=== PATIENT | female | born 1980 | race Caucasian/White ===

== ENCOUNTER 2019-11-06 11:54 | Emergency (ER) | payer OTHER ==
[2019-11-06 12:00] VITALS: TEMP 98.4; BMI 20.7
[2019-11-06] MEDS ORDERED: SODIUM CHLORIDE 1,000 ML IV STA (12:11)
[2019-11-06] MEDS ORDERED: ONDANSETRON 4 MG/2 ML VIAL IVPUSH ONE (12:11)
[2019-11-06] MEDS ORDERED: ONDANSETRON 4 MG/2 ML VIAL ONE (12:41)
--- NOTE | 2019-11-06 12:41 | PDOC ---
History of Present Illness - General Chief Complaint: Pain, Acute Stated Complaint: SENT BY PCP/ ABD.PAIN Time Seen by Provider: 11/06/19 12:10 History Source: Patient Exam Limitations: No Limitations - History of Present Illness Travel History: No Initial Comments: 11/06/19 12:29 39 y/o female with rlq sharp cramping x 3 days associated with nausea since onset. Pt has no bowel or urinary complaints. Pt states has been on control x 10 years and has had no menstrual cycle since starting it. Pt denies GI hx or hx. Pt denies fever or chills, recent travel, or recent illness. Timing/Duration: reports: constant Quality: reports: moderate, cramping, sharpness Abdominal Pain Onset Location: reports: RLQ Pain Radiation: reports: periumbilical Activities at Onset: reports: none Aggravating Factors: improves with: None Alleviating Factors: improves with: None Past History - Travel History Traveled outside of the country in the last 30 days: No Close contact w/someone who was outside of country & ill: No - Medical History Allergies/Adverse Reactions: Allergies Allergy/AdvReac Type Severity Reaction Status Date / Time No Known Allergies Allergy Verified 11/06/19 11:57 COPD: No (DENIES) - Reproductive History Is Patient Now?: No - Immunization History Immunization Up to Date: No - Psycho-Social/Smoking History Patient Lives Alone: No Lives with/in: parents Smoking History: Never smoked - Substance Abuse Hx (Audit-C & DAST Scrn) How often the patient has a drink containing alcohol: Never Score: In Men: 4 or > Positive; In Women: 3 or > Positive: 0 Screen Result (Pos requires Nsg. Audit-10AR): Negative In the last yr the pt used illegal drug/Rx for NonMed reason: No Score: Yes response is considered Positive: 0 Screen Result (Positive result requires Nsg. DAST-10): Negative Review of Systems - Review of Systems Able to Perform ROS?: Yes Constitutional: No: Symptoms Reported HEENTM: No: Symptoms Reported Respiratory: No: Symptoms reported Cardiac (ROS): No: Symptoms Reported ABD/GI: No: Abdominal cramping Musculoskeletal: No: Symptoms Reported Integumentary: No: Symptoms Reported Neurological: No: Symptoms reported Endocrine: No: Symptoms Reported *Physical Exam - Vital Signs Last Vital Signs Temp Pulse Resp BP Pulse Ox 98.4 F 100 H 18 126/77 100 11/06/19 11:57 11/06/19 11:57 11/06/19 11:57 11/06/19 11:57 11/06/19 11:57 - Physical Exam General Appearance: Yes: Nourished, Appropriately Dressed. No: Apparent Dist ress HEENT: negative: Pale Conjunctivae Neck: positive: Supple Respiratory/Chest: positive: Lungs Clear, Normal Breath Sounds. negative: Respiratory Distress, Accessory Muscle Use Cardiovascular: positive: Regular Rhythm, Regular Rate. negative: Murmur Gastrointestinal/Abdominal: positive: Soft, Tenderness (Negative McBurney's tenderness noted to the right lower quadrant no right suprapubic but had mild upper mid suprapubic tenderness without CVA tenderness) Extremity: positive: Normal Range of Motion Integumentary: positive: Normal Color, Warm, Moist Neurologic: positive: Motor Strength 5/5 (ambulatory) ED Treatment Course - LABORATORY CBC & Chemistry Diagram: 11/06/19 12:30 11/06/19 12:30 Medical Decision Making - Medical Decision Making 11/06/19 12:44 CC: rlq tenderness Exam: rlq tenderness, - mc burneys, no cva tenderness Plan: labs, urine, meds, ivf , and u/s 11/06/19 15:02 Laboratory Tests 11/06/19 11/06/19 11/06/19 12:30 12:30 12:30 WBC 6.5 Hgb 13.6 MCV 86.6 Absolute Neuts (auto) 2.8 Lymphocytes % 48.1 H D Sodium 139 Potassium 3.9 Chloride 106 Carbon Dioxide 27 Anion Gap 6 L BUN 8.4 Creatinine 0.8 Est GFR (CKD-EPI)AfAm 107.64 Est GFR (CKD-EPI)NonAf 92.87 Random Glucose 80 Calcium 9.4 Total Bilirubin 0.3 AST 15 ALT 15 Alkaline Phosphatase 50 Total Protein 7.7 Albumin 3.9 Ur Specific [place] 1.008 L Urine Protein Negative Urine Glucose (UA) Negative Urine Ketones Negative Urine Nitrite Negative Urine Bilirubin Negative Ur Leukocyte Esterase Negative Urine HCG, Qual Negative Patient states feeling better after receiving medication. Patient's ultrasound shows a small uterine fibroid which is consistent with where patient had discomfort. Will discharge patient home Discharge - Discharge Information Problems reviewed: Yes Clinical Impression/Diagnosis: Uterine fibroid Condition: Improved Disposition: HOME - Follow up/Referral Referrals: Salty Davenport MD [Primary Care Provider] - - Patient Discharge Instructions Patient Printed Discharge Instructions: DI for Uterine Fibroids Additional Instructions: At this time your ultrasound showed no signs of appendicitis and noted a uterine fibroid. I recommend taking Motrin 600 for discomfort follow-up with [facility] and bring labs and ultrasound report with you - Post Discharge Activity
[2019-11-06] MEDS ORDERED: KETOROLAC TROMETHAMINE 30 MG/1 ML VIAL IVPUSH ONE (12:46)
[2019-11-06] MEDS ORDERED: KETOROLAC TROMETHAMINE 30 MG/1 ML VIAL ONE (13:00)
[2019-11-06 13:11] LABS: BASO % 0.5 % (0-2.0); EOS % 0.6 % (0-4.5); HEMOGLOBIN 13.6 GM/dL (10.7-15.3); LYMPH % 48.1 % (8-40); MCH 28.6 pg (25.7-33.7); MCHC 33.1 g/dl (32.0-36.0); MEAN CELL VOLUME 86.6 fl (80-96); MEAN PLT VOLUME 9.7 fl (7.5-11.1); NEUT % 42.8 % (42.8-82.8); PLATELET COUNT 219 K/MM3 (134-434); RBC 4.74 M/mm3 (3.60-5.2); RDW 12.8 % (11.6-15.6); WHITE BLOOD COUNT 6.5 K/mm3 (4.0-10.0)
[2019-11-06 13:26] LABS: HCG,QUALITATIVE URINE Negative; PH,URINE 5.5 (5.0-8.0); URINE APPEARANCE CLEAR; URINE BILIRUBIN NEGATIVE (NEGATIVE); URINE COLOR YELLOW; URINE GLUCOSE (UA) NEGATIVE (NEGATIVE); URINE KETONE NEGATIVE (NEGATIVE); URINE LEUK ESTERASE NEGATIVE (NEGATIVE); URINE NITRITE NEGATIVE (NEGATIVE); URINE PROTEIN NEGATIVE (NEGATIVE); URINE UROBILINOGEN 0.2 mg/dL (0.2-1.0)
[2019-11-06 13:34] LABS: ALBUMIN 3.9 g/dl (3.4-5.0); BILIRUBIN,TOTAL 0.3 mg/dL (0.2-1); BLOOD UREA NITROGEN 8.4 mg/dL (7-18); CALCIUM 9.4 mg/dL (8.5-10.1); CREATININE 0.8 mg/dL (0.55-1.3); POTASSIUM 3.9 mmol/L (3.5-5.1); TOT PROT 7.7 g/dl (6.4-8.2)
[2019-11-06 15:41] VITALS: BP 118/72; PULSE 88
== END 2019-11-06 15:40 | disposition home or self-care (01) ==
LOC: JER 11:54
PROC: 3E0333Z Introduction of Anti-inflammatory into Peripheral Vein, Percutaneous Approach (ICD-10-PCS; principal; 2019-11-06)
PROC: 3E033GC Introduction of Other Therapeutic Substance into Peripheral Vein, Percutaneous Approach (ICD-10-PCS; 2019-11-06)
PROC: 3E0337Z Introduction of Electrolytic and Water Balance Substance into Peripheral Vein, Percutaneous Approach (ICD-10-PCS; 2019-11-06)
DX: D25.9 Leiomyoma of uterus, unspecified (principal)
CPT/HCPCS: 36415; 76856-TC; 80053; 81003; 84703; 85025; 87086; 99284-25